=== PATIENT | female | born 1950 | race Caucasian/White ===

== ENCOUNTER 2022-11-04 05:51 | Day surgery (SDC) | payer MEDICARE, OTHER ==
[2022-10-28 11:38] VITALS: BMI 36.6
[~2022-11-04 05:51] MED LIST: ALPRAZolam 0.25 MG TAB PO PRN; ALPRAZolam 0.5 MG TAB PO PRN; ASPIRIN 325 MG TAB PO STA; ATORVASTATIN 80 MG TAB PO STA; NITROGLYCERIN SL TABS 0.4 MG TAB SUBLINGUAL PRN; SODIUM CHLORIDE 0.9% 1,000 ML in EMPTY BAG 1 BAG IV SCH
[2022-11-04] MEDS ORDERED: SODIUM CHLORIDE 0.9% 1,000 ML IV ONE (06:05)
[2022-11-04 06:13] VITALS: TEMP 97.2
[2022-11-04 06:29] LABS: Basophils % (A) 0 %; Eosinophils # (A) 0.3 k/uL (0-0.7); Eosinophils % (A) 3 %; HCT 45.7 % (34.0-46.0); HGB 15.1 gm/dL (11.4-16.0); Lymphocytes # (A) 2.7 k/uL (1.0-4.8); Lymphocytes % (A) 26 %; MCH 32.2 pg (25.0-35.0); MCHC 33.1 g/dL (31.0-37.0); MCV 97.5 fL (80.0-100.0); Mean Platelet Volume 7.9; Monocytes # (A) 0.6 k/uL (0-1.0); Monocytes % (A) 6 %; Neutrophils # (A) 6.6 k/uL (1.3-7.7); Neutrophils % (A) 64 %; Platelet Count 281 k/uL (150-450); RBC 4.69 m/uL (3.80-5.40); WBC 10.3 k/uL (3.8-10.6)
[2022-11-04 06:35] LABS: African American GFR (CKD) 77 (>60 ml/min/1.73 sqM); Anion Gap 9 mmol/L; Blood Urea Nitrogen 15 mg/dL (7-17); Carbon Dioxide 24 mmol/L (22-30); Chloride 106 mmol/L (98-107); Glucose 92 mg/dL (74-99); Non-African American GFR(CKD) 67 (>60 ml/min/1.73 sqM); Potassium 3.4 mmol/L (3.5-5.1); Sodium 139 mmol/L (137-145)
[2022-11-04] MEDS ORDERED: HEPARIN SODIUM,PORCINE (1 ML) 2,500 UNIT in SODIUM CHLORIDE 0.9% 250 ML IRRIGATION PRN (07:00)
[2022-11-04] MEDS ORDERED: HEPARIN SODIUM,PORCINE 10,000 UNIT in SODIUM CHLORIDE 0.9% 1,000 ML IRRIGATION PRN (07:00)
[2022-11-04] MEDS ORDERED: VERAPAMIL 2.5 MG/ML 2 ML AMP ONE (07:15)
[2022-11-04] MEDS ORDERED: HEPARIN SODIUM 1,000 UN/ML (10ML VL) ONE (07:15)
[2022-11-04] MEDS ORDERED: MIDAZOLAM 2 MG/2 ML VIAL IVP ONE (07:38)
[2022-11-04] MEDS ORDERED: LIDOCAINE 1% INJ 10MG/ML (5 ML VIAL-PF) SQ ONE (07:40)
[2022-11-04] MEDS ORDERED: VERAPAMIL SYRINGE (5 MG/10 ML) INTRAARTER ONE (07:41)
[2022-11-04] MEDS ORDERED: HEPARIN SODIUM 1,000 UN/ML (10ML VL) IVP ONE (07:43)
[2022-11-04] MEDS: MIDAZOLAM 2 MG/2 ML VIAL IVP ONE ×2 (07:45→07:55)
[2022-11-04] MEDS ORDERED: RX INFO: IV CONTRAST WAS GIVEN 1 EACH MISC MISCELLANE PRN (07:59)
[2022-11-04] MEDS ORDERED: SODIUM CHLORIDE 0.9% 1,000 ML IV SCH (08:00)
--- NOTE | 2022-11-04 08:03 | P.PCN ---
Date of Procedure: 11/04/22 Operative Findings: CARDIAC CATHETERIZATION PERFORMING PHYSICIAN: Familia Finley MD, RPVI PROCEDURE PERFORMED: 1. Selective right and left coronary angiogram 2. Left heart catheterization 3. iFR of the LCx INDICATION: Chest discomfort concerning for angina in this 71-year-old female patient with multiple risk factors COMPLICATION: None APPROACH: Right radial artery LEVEL OF SEDATION: Moderate with a sedation length of 17 minutes PROCEDURE DESCRIPTION: After obtaining an informed consent, the patient was brought to cardiac component lab tech. Local anesthesia was performed using lidocaine subcutaneously. The right radial artery was cannulated using Seldinger technique, the guidewire passed easily, following that we advanced a 5-Comoran sheath dilator assembly, the wire and dilator were removed and sheath was flushed. Following that, 2 mg of verapamil along with 5000 unit heparin were given. Selective right and left coronary angiogram using a 6-Comoran JR4 and JL 3.5 catheters. Following that we did left heart catheterization using 6-Comoran pigtail catheter. The procedure was completed there was no complication. SELECTIVE CORONARY ANGIOGRAM: The right coronary artery: Moderate to large caliber vessel and a dominant vessel appears to be angiographically normal. Left main: Is normal bifurcates into an LCx and LAD The left circumflex: A large caliber vessel nondominant vessel. The LCx itself is angiographically normal and gives rises into an OM branch which has intermediate lesion. We did a Doppler wire on it and that came in to be nonischemic and 0.96 The left anterior descending artery: Has mild disease in the proximal portion. The LAD otherwise has no high-grade stenosis. HEMODYNAMICS: The LVEDP was 15 mmHg was no significant gradient across aortic valve iFR OF THE LCX:: Anticoagulation was initiated using heparin with continuous ACT monitoring. Subsequently and after zeroing the Doppler wire and equalizing between the Dopp ler wire and guiding catheter which was JL 3.5 guiding catheter we did iFR and that came in to be nonischemic and 0.96. The procedure was completed was no complication CONCLUSION: 1. Intermediate disease involving the OM. Doppler wire was performed and the lesion is nonischemic 2. Normal left-sided filling pressure POSTPROCEDURE MANAGEMENT: Medical treatment including aggressive cholesterol control and risk factors modification
[2022-11-04] MEDS ORDERED: IOPAMIDOL-370 100ML BTL INJ ONE (08:04)
[2022-11-04 10:25] VITALS: RESP 16
[2022-11-04 13:33] VITALS: BP 131/75; PULSE 62
== END 2022-11-04 13:01 | disposition home or self-care (01) ==
LOC: CATHCVL 05:51
PROVIDERS: ATTEND Internal Medicine Interventional Cardiology
DX: I73.9 Peripheral vascular disease, unspecified (principal); I10 Essential (primary) hypertension; E78.5 Hyperlipidemia, unspecified; F17.210 Nicotine dependence, cigarettes, uncomplicated; Z79.899 Other long term (current) drug therapy; Z82.49 Family history of ischemic heart disease and other diseases of the circulatory system
CPT/HCPCS: 93458; 93799; 80048; 85025; C1887; C1769 ×2; C1894; J2250; J2001; J1644; Q9967